=== PATIENT | female | born 1990 | race Two or more races ===

== ENCOUNTER 2023-09-01 10:32 | Outpatient (CLI) | payer OTHER | END 2023-09-01 10:42 | disposition home or self-care (01) | LOC: SONOGRAMA 10:32 → EDBD 10:32 → SONOGRAMA 10:42 | PROVIDERS: ATTEND Internal Medicine Hematology & Oncology | DX: E04.2 Nontoxic multinodular goiter (principal); D50.8 Other iron deficiency anemias ==